=== PATIENT | male | born 1985 | race Caucasian/White ===

== ENCOUNTER 2016-11-17 18:52 | Emergency (ER) | payer OTHER ==
--- NOTE | ~2016-11-17 | ER ---
[facility] 31 Y [address] ROOM: [place] [address] LOCATION: ED ADMIT DATE: 11/17/2016 ER/Outpatient Report DISCHARGE DATE: 11/17/2016 FAMILY PHYSICIAN: PHYSICIAN, NO ATTENDING PHYSICIAN: Aram Gamble CHIEF COMPLAINT: Fever and leg injury. HISTORY OF PRESENT ILLNESS: The patient states that on Tuesday evening he was drinking in his backyard when he developed some pain in his leg. It began to become more painful and swollen. He thought it was a bug bite and thus based on the advice of friends, he did administer garlic directly to the wound. This caused a burning sensation and blistering. He denies any other acute issues such as nausea or vomiting. He denies any sensory changes in the foot. No other acute issues. PAST MEDICAL HISTORY: Documented on the record and reviewed by me. SOCIAL HISTORY: Documented on the record and reviewed by me. MEDICATIONS: Documented on the record and reviewed by me. ALLERGIES: DOCUMENTED ON THE RECORD AND REVIEWED BY ME. REVIEW OF SYSTEMS: All systems reviewed and negative except as noted in the HPI. PHYSICAL EXAMINATION: VITAL SIGNS: Blood pressure is 146/70, pulse 92, respiratory rate 14, temp 100, and SpO2 is 96% on room air. Pain is rated at 0/10. Currently 8/10 at max. GENERAL: Age-appropriate male. No obvious pain or distress, sitting upright on the exam table. NEUROLOGIC: Awake and alert. GCS 15. No focal deficits. No asymmetry on exam. HEENT: Normocephalic and atraumatic. Eyes are PERRL. Oropharynx, clear. NECK: Supple. Trachea is midline. CHEST/HEART: Regular rate and rhythm with no murmurs. LUNGS: Clear to auscultation bilaterally. No rhonchi, wheezes, or rales. [facility]GE[facility] 31 Y [address] ROOM: [place] [id number] LOCATION: ED ADMIT DATE: 11/17/2016 ER/Outpatient Report DISCHARGE DATE: 11/17/2016 FAMILY PHYSICIAN: PHYSICIAN, NO ATTENDING PHYSICIAN: Aram Gamble ABDOMEN: Soft, nontender, and nondistended. No rebound or guarding. BACK: Back is normal to inspection and palpation. SKIN: Warm, dry, and intact. Other than a small area with some ecchymosis and bruising with cellulitis from the knee down to the distal tibia with no involvement of the ankle joint. There is some fluctuance and edema associated with that. The extremities are otherwise warm and well perfused with no other abnormalities. They are all neurovascularly intact. LABORATORY DATA AND X-RAYS: Wound aspirate is pending. Blood cultures are pending. CMS with no significant abnormalities other than slightly elevated glucose. CRP is 13.8. CBC without abnormality. INR is below threshold. Lactate is 1.4. Procalcitonin is 0.08. IMPRESSION: Abscess with cellulitis of the left distal anterior tibia and lower extremity. EMERGENCY DEPARTMENT COURSE: The patient was seen and evaluated as above. Bedside ultrasound did reveal an abscess pocket in the area in question. This was cleaned with chlorhexidine. An 18-gauge needle was inserted and approximately 0.5 mL of purulent material was aspirated and sent for Gram stain and culture. Labs were obtained and is not consistent with sepsis at this time. Based on the extent of cellulitis, the patient was given clindamycin initially. We will have him start a regimen of oral clindamycin as well. I did perform I and D of the abscess to express remainder of the purulent material. The area was anesthetized with 2 mL of lidocaine with epinephrine. An 11 blade was used to make a 0.5 mL incisions. Stab wound in the center of the induration and fluctuance. Significant amounts of purulent material were expressed. The wound base was probed and ultrasounded. No obvious pockets of purulent material were remaining. The wound was left open. The patient was given wound care instructions and a prescription for clindamycin which I stressed the importance that it is for him to take. He did receive a dose of IV clindamycin here. He was discharged in good condition with instructions to return if worse. MD ROMAN GRAFF/laura /[id number] d: 11/18/16 1301 t: 11/24/16 0932, OUTPATIENT REPORT
[2016-11-17 19:41] LABS: BASOPHIL % 0.2 %; EOSINOPHIL # 0.2 K/uL (0.0-0.5); EOSINOPHIL % 1.5 %; HEMOGLOBIN 14.8 g/dL (12.0-17.0); IMMATURE GRANULOCYTE # 0.1 K/uL (0.0-0.3); IMMATURE GRANULOCYTE % 0.7 %; LYMPHOCYTE # 1.5 K/uL (0.8-4.0); MCH 29.5 pg (27.0-34.0); MCHC 35.2 gm/dL (32.0-36.5); MCV 83.7 fl (83.0-98.0); MONOCYTE # 0.7 K/uL (0.0-1.0); MONOCYTE % 7.2 %; MPV 11.5 fl (9.4-12.4); NEUTROPHIL # (ANC) 7.4 K/uL (1.4-9.0); NEUTROPHIL % 75.4 %; NRBC % 0 /100WBC (0-0.00); PLATELET COUNT 151 K/uL (150-450); RBC 5.02 M/uL (4.00-6.00); RDW-CV 12.1 % (11.9-14.6); WBC 9.8 K/uL (4.0-11.0)
[2016-11-17 19:50] LABS: INR - (THERAPEUTIC) 0.91 (0.92-1.07); PROTIME 9.5 SECONDS (9.8-11.4); PTT 30 SECONDS (25-32)
[2016-11-17 20:03] LABS: ALBUMIN 3.6 gm/dL (3.5-5.0); ALK PHOS 76 IU/L (33-138); ALT 51 IU/L (12-78); ANION GAP 12.8 (10.0-19.0); AST 34 IU/L (10-40); BLOOD UREA NITROGEN 11 mg/dL (6-24); CALCIUM 8.3 mg/dL (8.5-10.5); CHLORIDE 106 mMol/L (96-110); CO2 26 mMol/L (22-32); CREATININE 0.8 mg/dL (0.6-1.3); ESTIMATED GFR (MDRD EQUATION) > 60; POTASSIUM 3.8 mMol/L (3.7-5.1); SODIUM 141 mMol/L (135-145); TOTAL BILIRUBIN 0.4 mg/dL (0.0-1.5); TOTAL PROTEIN 6.9 g/dL (6.0-8.4)
== END 2016-11-17 21:03 | disposition disaster alternative care site (69) ==
LOC: GMED 18:52
PROVIDERS: Emergency Medicine
PROC: 0H9LXZZ Drainage of Left Lower Leg Skin, External Approach (ICD-10-PCS; principal; 2016-11-17)
DX: L02.416 Cutaneous abscess of left lower limb (principal); L03.116 Cellulitis of left lower limb; F17.210 Nicotine dependence, cigarettes, uncomplicated
CPT/HCPCS: J7050